=== PATIENT | female | born 1985 | race African-American/Black ===

== ENCOUNTER 2016-04-21 18:47 | Emergency (ER) | payer MEDICAID ==
[~2016-04-21] VITALS: Ht 160 cm; Wt 54.4 kg
[2016-04-21 19:34] VITALS: BP 110/55
== END 2016-04-21 20:53 | disposition left against medical advice (07) ==
LOC: ER 18:48
DX: Z53.21 Procedure and treatment not carried out due to patient leaving prior to being seen by health care provider (principal)
CPT/HCPCS: A4606; Z7610

== ENCOUNTER 2017-01-28 20:36 | Emergency (ER) | payer MEDICAID ==
[~2017-01-28] VITALS: Ht 160 cm; Wt 54.4 kg
[2017-01-28 20:36] VITALS: BP 112/59
--- NOTE | 2017-01-28 21:47 | NUR ---
PAC CHRISTINA AT BEDSIDE FOR EVAL.
== END 2017-01-28 22:58 | disposition home or self-care (01) ==
LOC: ER 20:38
DX: S39.82XA Other specified injuries of lower back, initial encounter (principal); G43.909 Migraine, unspecified, not intractable, without status migrainosus; V49.49XA Driver injured in collision with other motor vehicles in traffic accident, initial encounter; Y93.89 Activity, other specified; Y92.89 Other specified places as the place of occurrence of the external cause; Y99.8 Other external cause status
CPT/HCPCS: 99283; A4606; Z7610

== ENCOUNTER 2020-11-07 08:39 | Emergency (ER) | payer MEDICAID ==
[~2020-11-07] VITALS: Ht 160 cm; Wt 59.0 kg
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
--- NOTE | 2020-11-07 09:06 | NUR ---
[employer] IN[employer]CTOR AT BEDSIDE
[2020-11-07] MEDS ORDERED: IBUP-1955 PO (09:47)
[2020-11-07] MEDS ORDERED: IBUPROFEN 600 MG TABLET PO ONE (10:00)
[2020-11-07 10:02] VITALS: BP 110/62
== END 2020-11-07 10:03 | disposition home or self-care (01) ==
LOC: ER 08:41
DX: S79.812A Other specified injuries of left hip, initial encounter (principal); S49.82XA Other specified injuries of left shoulder and upper arm, initial encounter; G43.909 Migraine, unspecified, not intractable, without status migrainosus; Z98.890 Other specified postprocedural states; V49.49XA Driver injured in collision with other motor vehicles in traffic accident, initial encounter; Y93.89 Activity, other specified; Y92.413 State road as the place of occurrence of the external cause; Y99.8 Other external cause status
CPT/HCPCS: 72170-TC; 73080-TC; 73502